=== PATIENT | male | born 1980 | race Two or more races ===

== ENCOUNTER 2024-04-19 19:04 | Emergency (ER) | payer BC ==
[2024-04-19] MEDS: Tetracaine HCl/PF 0.5% 4 ML Bottle EYEBOTH ONE (20:24)
[2024-04-19] MEDS: Diphtheria,Pertussis(Acell),Tetanus Vaccine 0.5 ML Syringe IM ONE (20:32)
[2024-04-19] MEDS: Acetaminophen 500 MG Tab PO ONE (20:33)
[2024-04-19] MEDS: Ibuprofen 600 MG Tab PO ONE (20:33)
[2024-04-19] MEDS: Erythromycin Base 0.5% Ophth Oint 1 GM Tube EYERT ONE (21:04)
== END 2024-04-19 21:08 | disposition home or self-care (01) ==
LOC: MW.ED 19:04
DX: S05.01XA Injury of conjunctiva and corneal abrasion without foreign body, right eye, initial encounter (principal); H15.9 Unspecified disorder of sclera; Z23 Encounter for immunization; X58.XXXA Exposure to other specified factors, initial encounter; Y99.0 Civilian activity done for income or pay
CPT/HCPCS: 90471; 90715; 99283; A9270; J3490